=== PATIENT | female | born 1995 | race Caucasian/White ===

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

== ENCOUNTER 2019-06-12 18:38 | Emergency (ER) | payer BC, OTHER ==
[2019-06-12 18:58] VITALS: BP 113/72
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
== END 2019-06-12 19:34 | disposition home or self-care (01) ==
LOC: UCCORT 18:38
DX: T22.212A Burn of second degree of left forearm, initial encounter (principal); T31.0 Burns involving less than 10% of body surface; X19.XXXA Contact with other heat and hot substances, initial encounter; Y93.89 Activity, other specified; Y92.9 Unspecified place or not applicable; Z72.0 Tobacco use
CPT/HCPCS: 99212; G0463